=== PATIENT | female | born 1950 | race Two or more races ===

== ENCOUNTER 2018-06-25 08:48 | Outpatient (CLI) | payer OTHER ==
[~2018-06-25] VITALS: Ht 157.5 cm; Wt 106.6 kg
[2018-06-25] MEDS ORDERED: LIPO-FLAVONOID1 EACH PO (09:42)
[2018-06-25] MEDS ORDERED: MEDROL4 MG PO (09:43)
== END 2018-06-25 09:05 | disposition home or self-care (01) ==
LOC: OFIC 805 08:48
DX: H91.8X1 Other specified hearing loss, right ear (principal); R42 Dizziness and giddiness

== ENCOUNTER 2018-08-20 10:19 | Outpatient (CLI) | payer OTHER ==
[~2018-08-20] VITALS: Ht 152.4 cm; Wt 106.6 kg
[~2018-08-20 10:19] MED LIST: LIPO-FLAVONOID1 EACH PO; MEDROL4 MG PO
[2018-08-20] MEDS ORDERED: LIPO-FLAVONOID1 EACH PO ×2 (10:56)
== END 2018-08-20 10:40 | disposition home or self-care (01) ==
LOC: OFIC 805 10:19
DX: H91.21 Sudden idiopathic hearing loss, right ear (principal); R42 Dizziness and giddiness; H93.11 Tinnitus, right ear

== ENCOUNTER 2018-08-22 07:28 | Outpatient (CLI) | payer OTHER ==
[~2018-08-22] VITALS: Ht 152.4 cm; Wt 106.6 kg
== END 2018-08-22 07:45 | disposition home or self-care (01) ==
LOC: OFIC 805 07:28
DX: H93.11 Tinnitus, right ear (principal); H90.41 Sensorineural hearing loss, unilateral, right ear, with unrestricted hearing on the contralateral side; R42 Dizziness and giddiness

== ENCOUNTER 2021-07-06 12:13 | Outpatient (CLI) | payer OTHER ==
[~2021-07-06 12:13] MED LIST changes: +DOLOGESIC 500-1 EACH PO; +ZANAFLEX2 MG PO
== END 2021-07-06 12:19 | disposition home or self-care (01) ==
LOC: NUCLEAR 12:13
PROVIDERS: ATTEND Internal Medicine
DX: M85.80 Other specified disorders of bone density and structure, unspecified site (principal); M81.0 Age-related osteoporosis without current pathological fracture

== ENCOUNTER 2024-04-28 11:52 | Emergency (ER) | payer OTHER ==
[~2024-04-28] VITALS: Ht 149.9 cm; Wt 108.9 kg
[~2024-04-28 11:52] MED LIST changes: +CELEBREX200MG PO; +ZANAFLEX4 MG PO
[2024-04-28] MEDS ORDERED: SYNTHROID50 MCG PO (12:07)
[2024-04-28] MEDS ORDERED: TOPROL XL25 M1 PO (12:07)
[2024-04-28] MEDS ORDERED: DEXAMETHASONE SODIUM PHOSPHATE 4 MG/ML VIAL IM STA (12:42)
[2024-04-28 12:58] LABS: HEMATOCRIT 36.3 % (36.0-45.00); HEMOGLOBIN 12.1 g/dL (12.0-15.00); MEAN CELL VOLUME 77.5 fL (80.00-100.00); MEAN CORPUSCULAR HEMOGLOBIN 25.9 pg (27.00-32.0); MEAN CORPUSCULAR HGB CONC 33.4 g/dl (32.0-36.0); PLATELET COUNT 214 K/uL (150-450); RED BLOOD COUNT 4.68 M/uL (4.00-6.00)
[2024-04-28 13:21] LABS: ALBUMIN 3.8 gm/dL (3.4-5.0); BILIRUBIN TOTAL 0.52 mg/dL (0.3-1.2); BILIRUBIN,CONJUGATED 0.14 mg/dL (0.0-0.2); BILIRUBIN,UNCONJUGATED 0.38 mg/dL (0.0-0.6); CALCIUM 9.1 mg/dL (8.5-10.1); CREATININE SERUM 0.62 mg/dL (0.55-1.02); GFR 94.09; POTASSIUM 3.99 mEq/L (3.5-5.1); TOTAL PROTEIN 7.6 gm/dL (6.4-8.2)
[2024-04-28 13:27] LABS: PH,URINE 5.5 (5.0-8.0); URINE APPEARANCE Clear; URINE BILIRRUBIN Negative (NEGATIVE); URINE BLOOD Trace; URINE COLOR Yellow; URINE GLUCOSE Negative (NEGATIVE); URINE KETONE Negative (NEGATIVE); URINE LEUKOCYTE Moderate; URINE NITRATE Negative; URINE PROTEIN Negative (NEGATIVE); URINE UROBILINOGEN 0.2 E.U./dl
[2024-04-28 13:31] LABS: URINE BACTERIA 23.9 uL (0.0-1933); URINE EPITHELIAL CELLS 12.2 uL (0.0-38.8); URINE RBC 18.9 uL (0.0-20.8); URINE WBC 100.9 uL (0.0-23.2)
== END 2024-04-28 15:06 | disposition home or self-care (01) ==
LOC: ER 11:53
PROVIDERS: General Practice
DX: L29.8 Other pruritus (principal); Z91.041 Radiographic dye allergy status; M19.90 Unspecified osteoarthritis, unspecified site; E03.8 Other specified hypothyroidism; J45.909 Unspecified asthma, uncomplicated
CPT/HCPCS: 36415; 96372; 99282; J1100